=== PATIENT | female | born 1990 ===

== ENCOUNTER 2021-06-13 12:07 | Emergency (ER) | payer OTHER ==
[2021-06-13 14:07] LABS: BASOPHIL 0.2 % (0-2); EOSINOPHIL 1.4 % (0-5); HCT 37.2 % (37.0-47.0); LYMPHOCYTE 20.5 % (15-48); MCH 30.2 pg (25.0-31.0); MCHC 32.3 g/dL (32.0-36.0); MCV 93.7 fL (78.0-100.0); MONOCYTE 9.5 % (0-12); MPV 9.9 fL (6.0-9.5); NEUTROPHIL 68.1 % (41-80); NRBC 0; PLT 339 K/uL (150-400); RBC 3.97 M/uL (4.20-5.40); RDW 14.2 % (11.5-14.0); WBC 8.9 K/uL (4.0-10.5)
[2021-06-13 14:26] LABS: BUN/CREAT RATIO (CALC) 41.9 RATIO; CREATININE 0.31 mg/dL (0.51-0.95); POTASSIUM 3.3 mmol/L (3.5-5.1)
== END 2021-06-14 | disposition home or self-care (01) ==
LOC: FER 12:07
PROVIDERS: Nurse Practitioner Family
DX: K94.23 Gastrostomy malfunction (principal); Z88.1 Allergy status to other antibiotic agents
CPT/HCPCS: 36415; 74018; 80048; 85025; 96374; 96375; 96376; J1170; J2405